=== PATIENT | male | born 2005 | race Caucasian/White ===

== ENCOUNTER 2025-11-11 14:02 | Emergency (ER) | payer BC, SELFPAY ==
[2025-11-11 14:38] VITALS: BP 131/78; PULSE 86; RESP 16; TEMP 37; O2SAT 99; BMI 18.6
--- NOTE | 2025-11-11 15:28 | XR_ITS ---
EXAMINATION: PA chest single view TECHNIQUE: Upright PA chest single view Date and time: November 11, 2025, 1530 hours INDICATIONS: Difficulty breathing today. FINDINGS: Normal heart size Lungs are clear. Osseous structures are intact. IMPRESSION: No active disease
--- NOTE | 2025-11-11 15:28 | EKG_ITS ---
[facility] Test Date: 2025-11-11 Pat Name: YVES CASEY Department: Room: - Gender: Male Nursing Faculty: : 2005 Requested By: Dottie Talbot Order Number: [id number] Reading MD: Dottie Talbot Measurements Intervals [place] Rate: 78 P: 70 CA: 132 QRS: 83 QRSD: 82 T: 59 QT: 350 QTc: 400 Interpretive Statements SINUS RHYTHM POSSIBLE LEFT ATRIAL ENLARGEMENT [-0.1mV P-WAVE IN V1/V2] No previous ECG available for comparison /store/S0/[id number]/[id number].pdf
--- NOTE | 2025-11-11 15:31 | PD.EDCHEST ---
ED Chest Pain RME/HPI General Chief Complaint: Nausea/Vomiting/Diarrhea Stated Complaint: TIGHTNESS IN CHEST, NAUSEA, TUNNEL VISION Time Seen by Provider: 11/11/25 15:05 Arrival date/time: 11/11/25 14:02 This is a 19-year-old male that comes into the emergency room with complaints of chest pain, nausea and shortness of breath. Patient describes the pain to the left side of his chest as sharp. Patient states it is worse with inspiration. Patient does not have pain to palpation. Patient reports that it is mostly when he takes deep breaths. Patient states he recently got over a viral illness patient denies any fever chills Related Data Home Medications ?Medication ?Instructions ?Recorded ?Confirmed Albuterol Sulfate HFA (INHALER) 2 puff inhalation Q6HR PRN ALLERGY 08/29/14 (PROVENTIL HFA (INHALER)) #0 inhalations Previous Rx's ?Medication ?Instructions ?Recorded ibuprofen 600 mg tablet 600 mg PO QID PRN pain #20 tabs 11/11/25 Allergies Allergy/AdvReac Type Severity Reaction Status Date / Time No Known Allergies Allergy Verified 11/11/25 14:06 Review of Systems Review of Systems Systems Reviewed: All systems reviewed, normal except as documented Past Medical History Past Medical History Comments PMH COMMENT: Denies ED Exam Narrative Physical exam: VITAL SIGNS: Reviewed. GENERAL APPEARANCE: Alert and interactive, follows commands, no acute distress, HEAD AND FACE: Non-traumatic. ENT: PERRL, conjuctiva pink and clear, eyelid no trauma, Mucous membrane moist. NECK: Supple, nontender, no nuchal rigidity. CHEST: No tenderness, no crepitus, no paradoxical movement, no retractions. LUNGS: Clear, well ventilated, symmetric, no rales, no wheezing, no rhonchi, no stridor, good breath sounds bilaterally. HEART: Regular rate, regular rhythm, no murmur, no gallops. ABDOMEN: Soft, nondistended, no guarding, nontender, no rebound, no masses, NEUROLOGICAL: Gross motor function intact sensory function intact, Appropriate for age. MUSCULOSKELETAL: low back nontender, full range of motion. EXTREMITIES: No redness no swelling no skin breakdown on bilateral foot and leg. Distal neurovascular status intact bilateral foot SKIN: Color pink, dry, no rash, no lacerations, no abrasions, no contusions. Course Quality Measures none Orders Category Date Time Status EKG (ED ONLY) *Do not use* NOW Care 11/11/25 15:28 Completed EKG (ED Only) Stat Exams 11/11/25 15:28 Draft XR chest 1V Stat Exams 11/11/25 15:28 Completed Acetaminophen Tab [Tylenol ES Tab] Med 11/11/25 15:26 Discontinued 1,000 mg PO X1 ONE Ibuprofen Tab [Motrin Tab] Med 11/11/25 15:26 Discontinued 600 mg PO X1 ONE Ondansetron Odt [Zofran Odt] Med 11/11/25 15:26 Discontinued 4 mg PO X1 ONE Vital Signs Vital signs: Vital Signs Temperature 98.6 F 11/11/25 14:38 Pulse Rate 86 11/11/25 14:38 Respiratory Rate 16 11/11/25 14:38 Blood Pressure 131/78 H 11/11/25 14:38 Pulse Oximetry (%) 99 11/11/25 14:38 Oxygen Delivery Method Room Air 11/11/25 14:38 PROCEDURES: EKG Interpretation #1: Date of EK11/11/25 Time of EK:30 Rate: 78 Interpretation: Interpreted by me (Sinus rhythm) EKG Impression: No ectopy, Normal QRS and Normal intervals Chest Pain MDM Narrative MDM Narrative:: FINDINGS: Normal heart size Lungs are clear. Osseous structures are intact. IMPRESSION: No active disease I spoke to patient at length I explained to him that patient can get pleurisy after having a viral illness. Patient does feel better. EKG sinus rhythm. I explained to parent and patient that this can last a week or so. I told him to make sure he follows up with his primary doctor in 1 to 2 days. Come back to the emergency room symptoms change or worsen. They verbalized understanding and felt comfortable plan of care. Dragon dictation: Although this document has been carefully reviewed, there may still be some phonetic and other typographical errors. These errors are purely grammatical due to imperfections in the software program and should not be construed in any way to compromise the substance of the patient's medical care during this visit. Patient data External records reviewed:: [facility] previous records Clinical information provided by:: patient Social determinants that could affect healthcare access:: none Patient has the following chronic illnesses:: none How is presenting disease/condition affected by chronic disease/condition?: no chronic disease Evaluation data The following diagnostics were reviewed and interpreted by me:: lab results, radiology exam(s) and EKG tracing(s) Lab and/or radiology exams considered but not ordered:: none Interpretation Summary: see note Medications / Prescriptions Medications or Prescriptions considered but not ordered:: none Medication administrations:: Medication Administration History Discontinued Medications Acetaminophen (Acetaminophen 500 Mg Tablet) 1,000 mg PO X1 ONE Stop: 11/11/25 15:27 Last Admin: 11/11/25 15:53 Dose: 1,000 mg Documented By: RAYMON Ibuprofen (Ibuprofen Tab 600 Mg Tablet) 600 mg PO X1 ONE Stop: 11/11/25 15:27 Last Admin: 11/11/25 15:54 Dose: 600 mg Documented By: RAYMON Ondansetron HCl (Ondansetron Odt 4 Mg Tabrap) 4 mg PO X1 ONE; Protocol Stop: 11/11/25 15:27 Last Admin: 11/11/25 15:54 Dose: 4 mg Documented By: RAYMON see [facility] Consultations Consultation(s) initiated? (list below): No Diagnosis Most likely diagnosis given after review of the tests above:: see note Admission Indicated Admission indicated?: not indicated Admission Request Was there a request for admission?: No Disposition Plan Disposition Plan: Discharge Discharge Attestation Discharge Attestation: The patient and all family members were given an opportunity to ask questions and understood the discharge instructions. Discharge instructions specifically effects, indications for sooner follow up or return to the emergency department, and the expected course of current diagnosis. Patient condition: Stable Discharge Plan Plan Patient Disposition: HOME (Self Care) Patient condition on transfer: Stable Prescriptions/Referrals Prescriptions/Med Rec: New ibuprofen 600 mg tablet 600 mg PO QID PRN (Reason: pain) Qty: 20 0RF No Action Albuterol Sulfate HFA (INHALER) (PROVENTIL HFA (INHALER)) 8.5 GM HFA.AER.AD 2 puff Inhalation Q6HR PRN (Reason: ALLERGY) Qty: 0 Referrals: No Primary/Family,Physician [Primary Care Provider] - In 1 week Problem List Clinical Impression: Acute chest wall pain, Pleurisy Patient/Caregiver Discharge Instructions Discharge Activity: activity as tolerated Education Materials: ED Pleurisy Additional Instructions: Follow up with primary provider in 1-2 days. Come back to ED if symptoms change or worsen Print Language: Japanese Stand Alone Forms: Molly Award Info., Patient Portal Info Letter PA/HI LIFT OPERATOR Supervising Physician PA/HI LIFT OPERATOR Supervising Physician: meryl
[2025-11-11] MEDS: ACETAMINOPHEN 500 MG TABLET 1000 MG PO (15:53)
[2025-11-11] MEDS: ONDANSETRON ODT 4 MG TABRAP PO (15:54)
[2025-11-11] MEDS: IBUPROFEN TAB 600 MG TABLET PO (15:54)
== END 2025-11-11 17:31 | disposition home or self-care (01) ==
PROVIDERS: Emergency Provider Emergency Medicine
DX: R07.89 Other chest pain (principal); R09.1 Pleurisy
CPT/HCPCS: 71045; 93005; 99283; Q0162; A9270